=== PATIENT | female | born 1965 | race Caucasian/White ===

== ENCOUNTER → 2016-10-26 09:39 | Emergency (ER) | payer BC ==
[2016-10-26 09:57] VITALS: BP 123/74
== END | disposition left against medical advice (07) ==
LOC: MERGE 09:39 → ED 09:39
DX: R10.9 Unspecified abdominal pain (principal); Z53.21 Procedure and treatment not carried out due to patient leaving prior to being seen by health care provider

== ENCOUNTER 2018-11-18 17:10 | Emergency (ER) | payer BC ==
[2018-11-18 18:10] LABS: ABS Eosinophils 0.1 10^3/ul (0-0.6); ABS Lymphocytes 1.7 10^3/ul (1.0-4.8); ABS Monocytes 0.6 10^3/ul (0-0.8); ABS Neutrophils 2.4 10^3/ul (1.5-7.7); Eosinophil % 2.7 %; Hematocrit 38 % (35-47); Hemoglobin 13.3 g/dL (12.0-16.0); Lymphocyte % 35.4 %; Mean Corpuscular HGB Conc 35 g/dL (31-36); Mean Corpuscular Hemoglobin 34 pg (27-31); Mean Corpuscular Volume 97 fL (80-97); Mean Platelet Volume 7.9 fL (7.4-10.4); Nucleated Red Blood Cells % 0.1; Platelet Count 231 10^3/uL (150-450); Red Blood Count 3.93 10^6 /uL (3.70-4.87); Red Cell Distribution Width 13 % (10-15); White Blood Count 4.9 10^3/uL (3.5-10.8)
[2018-11-18 18:27] LABS: Albumin 4.4 g/dL (3.2-5.2); Albumin/Globulin Ratio 1.8 (1-3); BUN/Creatinine Ratio 18.7 (8-20); Calcium 9.5 mg/dL (8.6-10.3); EGFR African American 97.8 (>60); EGFR Non-African American 80.8 (>60); Globulin 2.4 g/dL (2-4); Potassium 3.8 mmol/L (3.5-5.0); Total Bilirubin 0.4 mg/dL (0.2-1.0); Total Protein 6.8 g/dL (6.4-8.9)
[2018-11-18] MEDS ORDERED: NS 0.9% 1000 ML** 1,000 ML IV ONE (20:37)
[2018-11-18] MEDS ORDERED: Metoclopramide IV* 5 MG/ML 2 ML VIAL IV ONE (20:38)
[2018-11-18] MEDS ORDERED: diPHENhydraMINE IV* 50 MG/ML 1 ml VIAL (BENADRYL) IV ONE (20:38)
--- NOTE | 2018-11-18 20:50 | ED ---
Throat Pain/Nasal Congestion - HPI Summary HPI Summary: This pt is a 52 y/o female presenting to [facility] c/o right eye pain and swelling since today. Pt reports she woke up this morning with right eye pain. She describes an ache and pressure behind her right eye "like wanting to pop out." Pt notes she sees bright lights and has blurry vision on the right. She also states having right sided head pain. Pt went to see her general manager food today and was referred to Dr. Kimball. Dr. Kimball recommended the pt to come to the ED for a CT and he will follow up with her tomorrow at 0800. Denies hx of DM, high cholesterol, stroke. - History of Current Complaint Chief Complaint: EDEyeProblem Time Seen by Provider: 11/18/18 20:28 Hx Obtained From: Patient Onset/Duration: Lasting Hours, Still Present Severity: Moderate Associated Signs And Symptoms: Positive: Negative Cough: None - Allergies/Home Medications Allergies/Adverse Reactions: Allergies Allergy/AdvReac Type Severity Reaction Status Date / Time No Known Allergies Allergy Verified 10/26/16 10:02 PMH/Surg Hx/FS Hx/Imm Hx Endocrine/Hematology History: Denies: Hx Diabetes Cardiovascular History: Denies: Hx Hypercholesterolemia, Hx Hypertension Sensory History: Reports: Hx Contacts or Glasses Opthamlomology History: Reports: Hx Contacts or Glasses Neurological History: Denies: Hx CVA, Hx Transient Ischemic Attacks (TIA) - Cancer History Hx Chemotherapy: No Hx Radiation Therapy: No - Surgical History Surgery Procedure, Year, and Place: NONE TO AREA Infectious Disease History: No Infectious Disease History: Denies: Traveled Outside the [place] in Last 30 Days - Family History Family History: Maternal grandmother with breast CA. - Social History Alcohol Use: Occasionally Substance Use Type: Reports: None Smoking Status (MU): Never Smoked Tobacco Review of Systems Negative: Fever, Chills Eyes: Other - POSITIVE: bright lights right eye, right eye swelling, right eye pain Positive: Blurred Vision - right eye Cardiovascular: Negative Respiratory: Negative Positive: Headache - on the right All Other Systems Reviewed And Are Negative: Yes Physical Exam - Summary Physical Exam Summary: GENERAL: Patient is a well-developed and nourished female who is lying comfortable in the stretcher. Patient is not in any acute respiratory distress. HEAD AND FACE: Normocephalic EYES: PERRLA, EOMI x 2. EARS: Hearing grossly intact. MOUTH: Oropharynx within normal limits. NECK: Supple, trachea is midline, no adenopathy, no JVD, no carotid bruit. CHEST: Symmetric, no tenderness at palpation LUNGS: Clear to auscultation bilaterally. No wheezing or crackles. CVS: Regular rate and rhythm, S1 and S2 present, no murmurs or gallops appreciated. ABDOMEN: Soft, non-tender. Bowel sounds are normal. No abnormal abdominal pulsations. EXTREMITIES: Full ROM in all major joints, no edema, no cyanosis or clubbing. NEURO: Alert and oriented x 3. No acute neurological deficits. Speech is normal and follows commands. SKIN: Dry and warm Triage Information Reviewed: Yes Vital Signs On Initial Exam: Initial Vitals Temp Pulse Resp BP Pulse Ox 98.3 F 59 18 137/84 100 11/18/18 17:15 11/18/18 17:15 11/18/18 17:15 11/18/18 17:15 11/18/18 17:15 Vital Signs Reviewed: Yes Diagnostics - Vital Signs Vital Signs Temp Pulse Resp BP Pulse Ox 11/18/18 18:46 98.1 F 50 16 122/75 97 11/18/18 17:15 98.3 F 59 18 137/84 100 - Laboratory Lab Results: Lab Results 11/18/18 11/18/18 11/18/18 Range/Units 17:59 17:59 18:00 WBC 4.9 (3.5-10.8) 10^3/uL RBC 3.93 (3.70-4.87) 10^6 /uL Hgb 13.3 (12.0-16.0) g/dL Hct 38 (35-47) % MCV 97 (80-97) fL MCH 34 H (27-31) pg MCHC 35 (31-36) g/dL RDW 13 (10-15) % Plt Count 231 (150-450) 10^3/uL MPV 7.9 (7.4-10.4) fL Neut % (Auto) 48.3 % Lymph % (Auto) 35.4 % [place] % (Auto) 12.7 % Eos % (Auto) 2.7 % Baso % (Auto) 0.9 % Absolute Neuts (auto) 2.4 (1.5-7.7) 10^3/ul Absolute Lymphs (auto) 1.7 (1.0-4.8) 10^3/ul Absolute Monos (auto) 0.6 (0-0.8) 10^3/ul Absolute Eos (auto) 0.1 (0-0.6) 10^3/ul Absolute Basos (auto) 0.0 (0-0.2) 10^3/ul Absolute Nucleated RBC 0.0 10^3/ul Nucleated RBC % 0.1 Sodium 138 (135-145) mmol/L Potassium 3.8 (3.5-5.0) mmol/L Chloride 102 (101-111) mmol/L Carbon Dioxide 29 (22-32) mmol/L Anion Gap 7 (2-11) mmol/L BUN 14 (6-24) mg/dL Creatinine 0.75 (0.51-0.95) mg/dL Est GFR ( Amer) 97.8 (>60) Est GFR (Non-Af Amer) 80.8 (>60) BUN/Creatinine Ratio 18.7 (8-20) Glucose 94 (70-100) mg/dL Lactic Acid 0.6 (0.5-2.0) mmol/L Calcium 9.5 (8.6-10.3) mg/dL Total Bilirubin 0.40 (0.2-1.0) mg/dL AST 25 (13-39) U/L ALT 14 (7-52) U/L Alkaline Phosphatase 63 (34-104) U/L Total Protein 6.8 (6.4-8.9) g/dL Albumin 4.4 (3.2-5.2) g/dL Globulin 2.4 (2-4) g/dL Albumin/Globulin Ratio 1.8 (1-3) Result Diagrams: 11/18/18 18:00 11/18/18 17:59 Lab Statement: Any lab studies that have been ordered have been reviewed, and results considered in the medical decision making process. EENT Course/Dx - Course Assessment/Plan: Pt is a 52 y/o female presenting to [facility] c/o right eye pain and swelling since today. She describes an ache and pressure behind her right eye "like wanting to pop out." Pt notes she sees bright lights and has blurry vision on the right. Physical exam is unremarkable. Lab results are unremarkable. Brain and orbit CTs are pending. Pt will be signed out to Dr. Burgos pending CTs and disposition. - Diagnoses Provider Diagnoses: Eye pain Discharge ED - Sign-Out/Discharge Documenting (check all that apply): Sign-Out Patient Signing out patient TO: Yesenia Burgos - pending brain CT and orbit CT Patient Received Moderate/Deep Sedation with Procedure: No - Discharge Plan Condition: Stable Referrals: Irene uDeñas MD [Primary Care Provider] - - Billing Disposition and Condition Condition: STABLE - Attestation Statements Document Initiated by Scribe: Yes Documenting Scribe: Charla Bedolla Provider For Whom Scribe is Documenting (Include Credential): Elroy Lai MD Scribe Attestation: Charla Duong scribed for Elroy Lai MD on 11/18/18 at 2143. Scribe Documentation Reviewed: Yes Provider Attestation: The documentation as recorded by the scribCharla barbosa accurately reflects the service I personally performed and the decisions made by Elroy hogan MD Status of Scribe Document: Viewed
[2018-11-18] MEDS ORDERED: Iohexol 300* (CONTRAST) 10 ML SDV IV ONE (20:57)
--- NOTE | 2018-11-18 21:47 | ED ---
Progress - Progress Note Progress Note: The patient is a sign-out from Dr. Elroy Lai MD, to Dr. Yesenia Burgos MD , at change of shift at 2200 on 11/18/2018, pending Orbit CT, Brain CT, and disposition. Orbit CT impression is negative for acute pathology. Brain CT impression is negative for acute intracranial or orbital abnormalities. We discussed all results and patient is agreeable with discharge. - Results/Orders Results/Orders: Orbit CT Impression: No acute CT pathology. ED physician has reviewed this imaging report. Brain CT Impression: 1. No acute intracranial findings. 2. No orbital abnormality identified, per clinical concern. ED physician has reviewed this imaging report. Re-Evaluation - Re-Evaluation First Eval Re-Evaluation Time: 22:45 Comment: I have discussed results with the patient. Discussed symptoms that warrant immediate return to ED, and she agrees with ophthalmology follow up tomorrow. Course/Dx - Course Course Of Treatment: The patient is a sign-out from Dr. Elroy Lai MD, to Dr. Yesenia Burgos MD, at change of shift at 2200 on 11/18/2018, pending Orbit CT , Brain CT, and disposition. Orbit and Brain CT impressions are negative for acute intracranial or orbital abnormalities. She will be discharged home with follow up with ophthalmology tomorrow 11/19/18 at 0800. She understands and agrees with this plan. - Diagnoses Provider Diagnoses: Eye pain Discharge ED - Sign-Out/Discharge Documenting (check all that apply): Patient Departure - Patient will be discharged home., Receiving Sign-Out Receiving patient FROM: Elroy Lai - Patient is a sign-out from Dr. Marianne Lai MD, at 2200 on 11/18/2018, pending Orbit CT, Brain CT, and disposition. Patient Received Moderate/Deep Sedation with Procedure: No - Discharge Plan Condition: Stable Disposition: HOME Patient Education Materials: Eye Pain (ED) Referrals: Kingston Grant MD [Medical Doctor] - 11/19/18 8:00 am Irene Dueñas MD [Primary Care Provider] - 3 Days Additional Instructions: Follow up at your scheduled eye appointment tomorrow at 8:00 AM. Return to the emergency department for any new or worsening symptoms. - Billing Disposition and Condition Condition: STABLE Disposition: Home - Attestation Statements Document Initiated by Reibchelsey: Yes Documenting Scribe: Yuki Desir Provider For Whom Lesvia is Documenting (Include Credential): Dr. Yesenia Burgos MD Scribe Attestation: I, Yuki Desir, scribed for Dr. Yesenia Burgos MD on 11/19/18 at 0101. Scribe Documentation Reviewed: Yes Provider Attestation: The documentation as recorded by the Yuki serrato accurately reflects the service I personally performed and the decisions made by me, Dr. Yesenia Burgos MD Status of Scribe Document: Viewed
[2018-11-18 22:54] VITALS: BP 113/77
[2018-11-19] MEDS ORDERED: Levothyroxine TAB* 75 MCG TAB PO SCH (08:00)
== END 2018-11-18 22:53 | disposition home or self-care (01) ==
LOC: ED 17:10
DX: H57.11 Ocular pain, right eye (principal); Z79.899 Other long term (current) drug therapy
CPT/HCPCS: 36415; 70450; 70481; 80053; 83605; 85025; 96361; 96374; 96375; 99282; J1200; J2765; Q9967